=== PATIENT | male | born 1965 | race African-American/Black ===

== ENCOUNTER 2017-08-23 07:50 | Emergency (ER) | payer MEDICAID ==
[~2017-08-23] VITALS: Ht 182.9 cm; Wt 85.3 kg
[2017-08-23 07:50] VITALS: BP 129/72
[~2017-08-23 07:50] MED LIST: ADALAT20 MG ORAL; ASCORBIC ACID500 M4 ORAL; BACTROBAN CR1 APPLIC TOPIC; CEPHALEXIN500 MG ORAL; CYCLOBENZAPRINE10 MG ORAL; DOXYCYCLINE HY100 M7 PO; IBUPROFEN600 MG ORAL; METRONIDAZOLE500 MG ORAL; NEXIUM40 M2 ORAL; PRAVACHOL20 MG ORAL; PROGRAF1 MG ORAL; VIBRAMYCIN100 MG ORAL; VITAMIN E200 UNIT PO
[2017-08-23] MEDS ORDERED: Morphine Sulfate 2mg/ml Inj IVP ONE (08:00)
--- NOTE | 2017-08-23 08:28 | Emergency Room Report ---
History of Present Illness General Chief Complaint: Abdominal Pain Source: Patient, EMS Present Illness HPI 52-year-old male presents ED for evaluation. Patient states since last night his been having vomiting and cramping abdominal pain. This has multiple episodes of vomiting. Pain is resting, 8/10, nonradiating. Denies fevers or chills. Chest pain or shortness of breath. Denies diarrhea. I sick contacts or recent travel. No other aggravating relieving factors. Denies any other associated symptoms Allergies: Coded Allergies: No Known Allergies (Unverified , 11/17/15) Patient History Past Medical History: HTN Past Surgical History: other - cardiac transplant Pertinent Family History: none Social History: Denies: smoking, alcohol use, drug use Immunizations: UTD Reviewed Nursing Documentation: PMH: Agreed, PSxH: Agreed Nursing Documentation-PMH Past Medical History: No History, Except For Review of Systems All Other Systems: negative except mentioned in HPI Physical Exam Vital Signs Date Time Temp Pulse Resp B/P (MAP) Pulse Ox O2 Delivery O2 Flow Rate FiO2 08/23/17 07:41 97.9 89 20 114/58 99 Room Air Sp02 EP Interpretation: reviewed, normal General Appearance: alert, GCS 15, non-toxic, mild distress Head: normocephalic, atraumatic Eyes: bilateral eye normal inspection, bilateral eye PERRL ENT: hearing grossly normal, normal pharynx, no angioedema, normal voice Neck: full range of motion, supple/symm/no masses Respiratory: chest non-tender, lungs clear, normal breath sounds, speaking full sentences Cardiovascular #1: regular rate, rhythm, no edema Cardiovascular #2: 2+ carotid (R), 2+ carotid (L), 2+ radial (R), 2+ radial (L) , 2+ dorsalis pedis (R), 2+ dorsalis pedis (L) Gastrointestinal: normal bowel sounds, non tender, soft, non-distended, no guarding, no rebound Rectal: deferred Genitourinary: normal inspection, no CVA tenderness Musculoskeletal: back normal, gait/station normal, normal range of motion, non- tender Neurologic: alert, oriented x3, responsive, motor strength/tone normal, sensory intact, speech normal Psychiatric: judgement/insight normal, memory normal, mood/affect normal, no suicidal/homicidal ideation Reflexes: 3+ bicep (R), 3+ bicep (L), 3+ tricep (R), 3+ tricep (L), 3+ knee (R) , 3+ knee (L) Skin: normal color, no rash, warm/dry, well hydrated Lymphatic: no adenopathy Medical Decision Making Diagnostic Impression: Primary Impression: Gastritis Qualified Codes: K29.00 - Acute gastritis without bleeding ER Course Hospital Course 52-year-old M presents to ED with epigastric pain with N/V. differential diagnosis: gastritis, SBO, cholecystits Clinical course Patient placed on stretcher. On telemetry monitor. After initial history and physical I ordered labs, IV fluids, Zofran, pepcid and pain medication Labs - minimal leukocytosis, no electrolyte abnormalities, LFTs normal Upon reassessment, patient states pain has improved. findings consistent with gastritis I feel this is a highly complex case requiring extensive working including EKG/ Rhythm strip, Xray/CT/US, Blood/urine lab work, repeat exams while in ED, and administration of strong opiates/narcotics for pain control, admission to hospital or close patient follow up. Diagnosis - gastritis Stable and discharged to home with prescriptions for Zantac, zofran, bentyl. Followup with PMD. Return to ED if symptoms recur or worsen Labs Test 08/23/17 08:10 08/23/17 08:49 White Blood Count 11.5 K/UL (4.8-10.8) Red Blood Count 4.64 M/UL (4.70-6.10) Hemoglobin 14.5 G/DL (14.2-18.0) Hematocrit 44.8 % (42.0-52.0) Mean Corpuscular Volume 96 FL (80-99) Mean Corpuscular Hemoglobin 31.3 PG (27.0-31.0) Mean Corpuscular Hemoglobin Concent 32.4 G/DL (32.0-36.0) Red Cell Distribution Width 12.3 % (11.6-14.8) Platelet Count 245 K/UL (150-450) Mean Platelet Volume 6.6 FL (6.5-10.1) Neutrophils (%) (Auto) 83.9 % (45.0-75.0) Lymphocytes (%) (Auto) 12.1 % (20.0-45.0) Monocytes (%) (Auto) 3.5 % (1.0-10.0) Eosinophils (%) (Auto) 0.0 % (0.0-3.0) Basophils (%) (Auto) 0.4 % (0.0-2.0) Sodium Level 139 MMOL/L (136-145) Potassium Level 3.9 MMOL/L (3.5-5.1) Chloride Level 101 MMOL/L (98-107) Carbon Dioxide Level 28 MMOL/L (21-32) Anion Gap 10 mmol/L (5-15) Blood Urea Nitrogen 10 mg/dL (7-18) Creatinine 1.1 MG/DL (0.55-1.30) Estimat Glomerular Filtration Rate > 60 mL/min (>60) Glucose Level 141 MG/DL (74-106) Calcium Level 9.6 MG/DL (8.5-10.1) Total Bilirubin 0.9 MG/DL (0.2-1.0) Aspartate Amino Transf (AST/SGOT) 16 U/L (15-37) Alanine Aminotransferase (ALT/SGPT) 20 U/L (12-78) Alkaline Phosphatase 43 U/L (46-116) Troponin I 0.000 ng/mL (0.000-0.056) Total Protein 8.3 G/DL (6.4-8.2) Albumin 4.5 G/DL (3.4-5.0) Globulin 3.8 g/dL Albumin/Globulin Ratio 1.2 (1.0-2.7) Lipase 145 U/L (73-393) Urine Color Pale yellow Urine Appearance Clear Urine pH 9 (4.5-8.0) Urine Specific Jay 1.015 (1.005-1.035) Urine Protein Negative (NEGATIVE) Urine Glucose (UA) Negative (NEGATIVE) Urine Ketones 3+ (NEGATIVE) Urine Occult Blood Negative (NEGATIVE) Urine Nitrite Negative (NEGATIVE) Urine Bilirubin Negative (NEGATIVE) Urine Urobilinogen Normal MG/DL (0.0-1.0) Urine Leukocyte Esterase Negative (NEGATIVE) Last Vital Signs Date Time Temp Pulse Resp B/P (MAP) Pulse Ox O2 Delivery O2 Flow Rate FiO2 08/23/17 07:50 97.9 89 21 129/72 95 Room Air Status: improved Disposition: HOME, SELF-CARE Condition: Stable Scripts Ranitidine Hcl* (ZANTAC*) 150 Mg Tablet 150 MG ORAL TWICE A DAY, #30 TAB Prov: DANILO NEFF M.D. 08/23/17 Dicyclomine Hcl* (BENTYL*) 10 Mg Capsule 10 MG ORAL FOUR TIMES A DAY, #20 CAP Prov: DANILO NEFF M.D. 08/23/17 Ondansetron Odt* (ZOFRAN ODT*) 4 Mg Tab.rapdis 4 MG ORAL Q6H Y for Nausea & Vomiting, #30 TAB 0 Refills Prov: DANILO NEFF M.D. 08/23/17 Referrals: NOT CHOSEN [facility]/,REFERRING (PCP) DANILO NEFF M.D. Aug 23, 2017 08:28
[2017-08-23 08:32] LABS: BASOPHILS % (AUTO) 0.4 % (0.0-2.0); LYMPHOCYTES % (AUTO) 12.1 % (20.0-45.0); MEAN CORPUSCULAR HEMOGLOBIN 31.3 PG (27.0-31.0); MEAN CORPUSCULAR HGB CONC 32.4 G/DL (32.0-36.0); MEAN CORPUSCULAR VOLUME 96 FL (80-99); MEAN PLATELET VOLUME 6.6 FL (6.5-10.1); MONOCYTES % (AUTO) 3.5 % (1.0-10.0); NEUTROPHILS % (AUTO) 83.9 % (45.0-75.0); PLATELET COUNT 245 K/UL (150-450); RED BLOOD COUNT 4.64 M/UL (4.70-6.10); RED CELL DISTRIBUTION WIDTH 12.3 % (11.6-14.8); WHITE BLOOD COUNT 11.5 K/UL (4.8-10.8)
[2017-08-23 08:43] LABS: ALANINE AMINOTRANSFERASE 20 U/L (12-78); ALBUMIN/GLOBULIN RATIO 1.2 (1.0-2.7); ANION GAP 10 mmol/L (5-15); ASPARTATE AMINO TRANSFERASE 16 U/L (15-37); CALCIUM 9.6 MG/DL (8.5-10.1); CARBON DIOXIDE 28 MMOL/L (21-32); CHLORIDE 101 MMOL/L (98-107); CREATININE 1.1 MG/DL (0.55-1.30); GLOMERULAR FILTRATION RATE > 60 mL/min (>60); LIPASE 145 U/L (73-393); POTASSIUM 3.9 MMOL/L (3.5-5.1); SODIUM 139 MMOL/L (136-145); TOTAL PROTEIN 8.3 G/DL (6.4-8.2)
[2017-08-23 09:02] LABS: APPEARANCE,URINE CLEAR; KETONES,URINE 3+ (NEGATIVE); LEUKOCYTE ESTERASE ,URINE NEGATIVE (NEGATIVE); NITRITE,URINE NEGATIVE (NEGATIVE); PH,URINE 9 (4.5-8.0); PROTEIN,URINE NEGATIVE (NEGATIVE); UROBILINOGEN,URINE NORMAL MG/DL (0.0-1.0)
[2017-08-23 09:31] VITALS: BP 130/70
[2017-08-23] MEDS ORDERED: ZOFRAN ODT4 MG ORAL (10:03)
[2017-08-23] MEDS ORDERED: RANITIDINE HCL150 MG ORAL (10:03)
[2017-08-23] MEDS ORDERED: BENTYL10 MG ORAL (10:03)
[2017-08-23 10:20] VITALS: BP 130/70
--- NOTE | 2017-08-24 16:44 | Cardiology Report ---
APPROVED REPORT EKG Measurement Heart [id number] Normal sinus rhythm with sinus arrhythmia Possible Left atrial enlargement Borderline ECG
== END 2017-08-23 11:08 | disposition home or self-care (01) ==
LOC: EDBD 07:50 → EMR 08:26
DX: K29.70 Gastritis, unspecified, without bleeding (principal); R10.9 Unspecified abdominal pain; I10 Essential (primary) hypertension; Z94.1 Heart transplant status
CPT/HCPCS: 36415; 80053; 81003; 83690; 84484; 85025; 93005; 96361; 96374; 96375; 96376; 99284; J2270; J2405; S0028

== ENCOUNTER 2020-09-28 12:27 | Emergency (ER) | payer MEDICAID ==
[~2020-09-28] VITALS: Ht 182.9 cm; Wt 83.9 kg
[~2020-09-28 12:27] MED LIST changes: +BENTYL10 MG ORAL; +RANITIDINE HCL150 MG ORAL; +ZOFRAN ODT4 MG ORAL
--- NOTE | 2020-09-28 12:54 | NUR ---
ED Nurse Note: pt presents to ED c/o sore thraot x3 days. pt states that it hurts for him to swallow, noticed some swelling to back of throat. denies airway compromise, denies fever/chills. vitals are noted to be stable on traige
[2020-09-28 12:55] VITALS: BP 132/84
--- NOTE | 2020-09-28 13:24 | Emergency Room Report ---
History of Present Illness General Chief Complaint: Sore Throat Source: Patient Present Illness HPI 55-year-old male with history of heart transplant x10 years, hypertension currently taking medication here complaining of 3 days of cough, congestion, and sore throat. Patient reports that he was exposed to Covid as his girlfriend called him 2 days ago and said that she is positive for Covid he was around her last week. Denies any diarrhea, loss of taste and smell. Vital signs within normal limits and patient is in no distress. Patient reports that" I came here just to get a Covid test." Patient has not been taking any medication for symptom relief. Denies chest pain shortness of breath at this time. 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 Patient History Past Medical History: see triage record Past Surgical History: none Pertinent Family History: none Immunizations: UTD Reviewed Nursing Documentation: PMH: Agreed; PSxH: Agreed Review of Systems All Other Systems: negative except mentioned in HPI Physical Exam Vital Signs Date Time Temp Pulse Resp B/P (MAP) Pulse Ox O2 Delivery O2 Flow Rate FiO2 09/28/20 12:43 98.6 99 19 132/84 (100) 96 Room Air Sp02 EP Interpretation: reviewed, normal General Appearance: no apparent distress, alert, GCS 15, non-toxic Head: normocephalic, atraumatic Eyes: bilateral eye normal inspection, bilateral eye PERRL ENT: hearing grossly normal, no angioedema, normal voice, tonsillar swelling Neck: full range of motion, supple/symm/no masses Respiratory: no respiratory distress, no retraction, no accessory muscle use Cardiovascular #1: regular rate, rhythm, no edema Gastrointestinal: normal bowel sounds, non tender, soft, non-distended, no guarding, no rebound Rectal: deferred Musculoskeletal: back normal Neurologic: alert, motor strength/tone normal, oriented x3, sensory intact, responsive, speech normal Psychiatric: judgement/insight normal, memory normal, mood/affect normal, no suicidal/homicidal ideation Skin: no rash Lymphatic: no adenopathy Medical Decision Making PA Attestation All my diagnosis and treatment plans were reviewed ad discussed with my supervising physician Dr. He Diagnostic Impression: Primary Impression: Pneumonia Additional Impression: Pharyngitis ER Course 55-year-old male with history of heart transplant x10 years, hypertension currently taking medication here complaining of 3 days of cough, congestion, and sore throat. Patient reports that he was exposed to Covid as his girlfriend called him 2 days ago and said that she is positive for Covid he was around her last week. Denies any diarrhea, loss of taste and smell. Vital signs within normal limits and patient is in no distress. Patient reports that" I came here just to get a Covid test." Patient has not been taking any medication for symptom relief. Denies chest pain shortness of breath at this time. Ddx considered but are not limited to: bronchitis, PNA, URI viral, bacterial bronchitis, Covid pneumonia Vital signs: are WNL, pt. is afebrile H&PE are most consistent with: Pneumonia most likely secondary to Covid, phary ngitis ORDERS: Chest x-ray, prednisone, azithromycin, albuterol ED INTERVENTIONS: None required at this time. DISCHARGE: At this time pt. is stable for d/c to home. Will provide printed patient care instructions, and any necessary prescriptions. Care plan and follow up instructions have been discussed with the patient prior to discharge. Advised patient at this time due to patient vital signs being stable and due to the infiltrates noted right lower lobe of the lungs patient can be discharged home with medication, advised to quarantine and get tested for Covid. Patient reports that he has been quarantine himself for the past few days. Explained to the patient that we do not routinely test for Covid due to recent low resources. Patient understands and agrees. Advised patient return to emergency room if worsening symptoms Chest X-Ray Diagnostic Results Chest X-Ray Diagnostic Results : Chest X-Ray Ordered: Yes # of Views/Limited/Complete: 1 View Indication: Other - Cough EP Interpretation: Yes [place] Xray: Interpretation reviewed, by supervising MD, and agrees with findings. Interpretation: no pneumothorax, other - Infiltrate right lower lobe Impression: Other - Pneumonia Electronically Signed by: Nadya Wiseman PA-C Last Vital Signs Date Time Temp Pulse Resp B/P (MAP) Pulse Ox O2 Delivery O2 Flow Rate FiO2 09/28/20 12:55 98.6 86 19 132/84 96 Room Air Disposition: HOME, SELF-CARE Condition: Stable Scripts Albuterol Sulfate (VENTOLIN HFA) 18 Gm Hfa.aer.ad 2 PUFFS INH EVERY 6 HOURS, #18 GM 0 Refills Prov: Nadya Zaldivar 09/28/20 Prednisone* (PREDNISONE*) 20 Mg Tablet 40 MG ORAL DAILY for 5 Days, #10 TAB Prov: Nadya Zaldivar 09/28/20 Azithromycin* (ZITHROMAX*) 250 Mg Tablet 250 MG ORAL DAILY, #6 TAB 0 Refills Take two tables once daily for 1 day, then one tablet once daily for 4 days. Prov: Nadya Zaldivar 09/28/20 Referrals: NOT CHOSEN [facility]/MD,REFERRING (PCP) Patient Instructions: Community-Acquired Pneumonia, Adult, Pharyngitis, [id number] Additional Instructions: Take medication as directed, quarantine yourself, if worsening symptoms return to the emergency room Nadya Zaldivar Sep 28, 2020 13:24
[2020-09-28] MEDS ORDERED: ALBUTEROL2.5 MG/3 M INH (13:26)
[2020-09-28] MEDS ORDERED: ZITHROMAX250 MG ORAL (13:26)
[2020-09-28] MEDS ORDERED: PREDNISONE20 MG ORAL (13:26)
[2020-09-28] MEDS ORDERED: VENTOLIN HFA18 GM INH (13:32)
[2020-09-28 14:00] VITALS: BP 132/84
--- NOTE | 2020-09-28 14:00 | NUR ---
ER DISCHARGE NOTE: Patient is cleared to be discharged per ERMD, pt is aox4, on room air, with stable vital signs. pt was given dc and prescription instructions, pt was able to verbalize understanding, pt id band removed without complications. pt is able to ambulate with steady gait. pt took all belongings.
--- NOTE | 2020-09-28 15:08 | Diagnostic Imaging Report ---
Indication: Shortness of breath Technique: One view of the chest Comparison: none Findings: Patient is rotated to the right. The lungs and pleural spaces are clear. The heart size is normal. There is evidence of prior CABG Impression: Negative
== END 2020-09-28 14:00 | disposition home or self-care (01) ==
LOC: EMR 13:10
DX: J18.9 Pneumonia, unspecified organism (principal); J02.9 Acute pharyngitis, unspecified
CPT/HCPCS: 71045; Z7502; 99283